=== PATIENT | female | born 1945 | race Caucasian/White ===

== ENCOUNTER 2016-08-12 14:32 | Inpatient (IN) | payer OTHER ==
[~2016-08-12] VITALS: Ht 175.3 cm; Wt 62.9 kg
[~2016-08-12 14:32] MED LIST: CARAFATE1 GM PO; LORTAB 5-325 M1 EACH PO; NEURONTIN100 MG PO; PRILOSEC40 MG PO; Protonix PO; ROPINIROLE HCL1 MG PO; ZANTAC150 MG PO; ZOFRAN ODT8 MG PO; ZOFRAN4 MG PO
[2016-08-12 15:17] LABS: HEMATOCRIT 46.7 % (36.0-46.0); MCH 31.6 PG (29.0-34.0); MCHC 34.3 G/DL (30.0-36.0); MCV 92.1 FL (83-99); PLATELET COUNT 181 K/uL (156-360); RBC DIS.WIDTH-CV 12.9 % (11.8-14.6); RBC DIS.WIDTH-SD 43.5 % (39-53); RED BLOOD COUNT 5.07 M/uL (3.80-5.20); WHITE BLOOD COUNT 17.9 K/uL (4.1-10.2)
[2016-08-12 15:19] LABS: BILIRUBIN NEGATIVE; BLOOD NEGATIVE; COLOR YELLOW ((YELLOW)); GLUCOSE (STRIP) NEGATIVE; KETONES 80; LEUKOCYTES NEGATIVE; NITRITE NEGATIVE; PROTEIN (STRIP) 30; SPECIFIC GRAVITY 1.018 (1.000-1.030); UROBILINOGEN 0.2 MG/DL (0.2-1.0)
[2016-08-12 15:21] LABS: ADD MIUA? NO; UCUL ADDED? NO
[2016-08-12 15:30] LABS: CHLORIDE 88 mEq/L (99-109); SODIUM 134 mEq/L (136-147)
[2016-08-12 15:32] LABS: GLUCOSE 134 mg/dL (70-99)
[2016-08-12 15:33] LABS: ANION GAP 18 MEQ/L (2-14)
[2016-08-12 15:34] LABS: TOTAL BILIRUBIN 0.6 mg/dL (0.0-1.0)
[2016-08-12 15:35] LABS: ALKALINE PHOSPHATASE 77 IU/L (3-129)
[2016-08-12 15:36] LABS: GFR ESTIMATE (CALCULATED) 47 mL/min/
[2016-08-12 15:37] LABS: UREA NITROGEN (BUN) 47 mg/dL (9-23)
[2016-08-12] MEDS ORDERED: AMLODIPINE BESYL5 MG PO (17:15)
[2016-08-12] MEDS ORDERED: VITAMIN D31000 UNIT PO (17:15)
[2016-08-12] MEDS ORDERED: LO-DOSE ASPIRIN81 M2 PO (17:16)
[2016-08-12] MEDS ORDERED: METOPROLOL TART50 MG PO (17:16)
[2016-08-12 23:09] VITALS: BP 130/68
[2016-08-13] VITALS (8 sets, daily range): BP systolic 106–179; BP diastolic 56–90
[2016-08-13 07:34] LABS: HEMATOCRIT 39.3 % (36.0-46.0); MCV 94.7 FL (83-99)
[2016-08-13 08:26] LABS: MCH 32.1 PG (29.0-34.0); MCHC 33.9 G/DL (30.0-36.0); MEAN PLAT.VOLUME 10.4 uM^3 (9.5-12.4); PLATELET COUNT 148 K/uL (156-360); RBC DIS.WIDTH-CV 13.2 % (11.8-14.6); RBC DIS.WIDTH-SD 45.7 % (39-53); RED BLOOD COUNT 4.14 M/uL (3.80-5.20); WHITE BLOOD COUNT 14.8 K/uL (4.1-10.2)
[2016-08-13 08:38] LABS: ANION GAP 10 MEQ/L (2-14); CHLORIDE 99 MEQ/L (99-109); GLUCOSE 106 mg/dL (70-99); MAGNESIUM 2.1 mg/dl (1.3-2.7); POTASSIUM 3.1 MEQ/L (3.7-5.4); SAMPLE HEMOLYSIS CHECK 0; SAMPLE ICTERIC CHECK 0; SAMPLE LIPEMIA CHECK 0; SODIUM 138 MEQ/L (136-147)
[2016-08-13 08:41] LABS: GFR ESTIMATE (CALCULATED) > 59 mL/min/; UREA NITROGEN (BUN) 21 mg/dL (9-23)
[2016-08-13 17:46] LABS: AMPHETAMINES QUANT VALUE 0 NG/ML; BARBITUATES QUANT VALUE 0 NG/ML; BENZODIAZEPINES QUANT VALUE 0 NG/ML; BENZODIAZEPINES, URINE SCREEN Negative (200 ng/mL); PHENCYCLIDINE QUANT VALUE 0 NG/ML
[2016-08-13 19:49] LABS: HEMATOCRIT 37.9 % (36.0-46.0); MCV 96.2 FL (83-99)
[2016-08-14 03:54] VITALS: BP 105/66
[2016-08-14 08:16] LABS: HEMATOCRIT 34.6 % (36.0-46.0); MCV 95.1 FL (83-99)
[2016-08-14 08:34] VITALS: BP 135/65
[2016-08-14 08:50] LABS: MCHC 34.6 G/DL (30.0-36.0); MEAN PLAT.VOLUME 10.7 uM^3 (9.5-12.4); PLATELET COUNT 126 K/uL (156-360); RBC DIS.WIDTH-CV 12.9 % (11.8-14.6); RBC DIS.WIDTH-SD 44.7 % (39-53); RED BLOOD COUNT 3.61 M/uL (3.80-5.20); WHITE BLOOD COUNT 7.2 K/uL (4.1-10.2)
[2016-08-14 09:29] LABS: ANION GAP 11 MEQ/L (2-14); CHLORIDE 100 MEQ/L (99-109); GFR ESTIMATE (CALCULATED) > 59 mL/min/; POTASSIUM 2.8 MEQ/L (3.7-5.4); SAMPLE HEMOLYSIS CHECK 0; SAMPLE ICTERIC CHECK 0; SAMPLE LIPEMIA CHECK 0; SODIUM 135 MEQ/L (136-147); UREA NITROGEN (BUN) 16 mg/dL (9-23)
[2016-08-14 09:35] LABS: GLUCOSE 71 mg/dL (70-99)
[2016-08-14 12:05] LABS: MAGNESIUM 1.7 mg/dl (1.3-2.7)
[2016-08-14 12:28] VITALS: BP 151/68
[2016-08-14] MEDS ORDERED: FOLIC ACID1 MG PO (15:11)
[2016-08-14] MEDS ORDERED: THERAGRAN1 TABLET PO (15:11)
[2016-08-14] MEDS ORDERED: Thiamine,Vitamin B1 PO (15:12)
[2016-08-14 15:46] VITALS: BP 151/71
[2016-08-14 18:30] LABS: ANION GAP 7 MEQ/L (2-14); CHLORIDE 100 MEQ/L (99-109); GFR ESTIMATE (CALCULATED) > 59 mL/min/; SAMPLE HEMOLYSIS CHECK 0; SAMPLE ICTERIC CHECK 0; SAMPLE LIPEMIA CHECK 0; SODIUM 134 MEQ/L (136-147); UREA NITROGEN (BUN) 11 mg/dL (9-23)
[2016-08-14 18:35] LABS: GLUCOSE 130 mg/dL (70-99); POTASSIUM 3.7 MEQ/L (3.7-5.4)
[2016-08-14 21:16] LABS: MCV 93.2 FL (83-99)
[2016-08-14 23:55] VITALS: BP 124/60
[2016-08-15 03:51] VITALS: BP 177/84
[2016-08-15 08:00] VITALS: BP 115/58
[2016-08-15 08:52] LABS: HEMATOCRIT 37.7 % (36.0-46.0); MCH 31.8 PG (29.0-34.0); MCHC 34.2 G/DL (30.0-36.0); MCV 92.9 FL (83-99); MEAN PLAT.VOLUME 10.4 uM^3 (9.5-12.4); PLATELET COUNT 154 K/uL (156-360); RBC DIS.WIDTH-CV 12.3 % (11.8-14.6); RED BLOOD COUNT 4.06 M/uL (3.80-5.20); WHITE BLOOD COUNT 8.1 K/uL (4.1-10.2)
[2016-08-15 09:15] LABS: ANION GAP 8 MEQ/L (2-14); CHLORIDE 100 MEQ/L (99-109); GFR ESTIMATE (CALCULATED) > 59 mL/min/; GLUCOSE 125 mg/dL (70-99); POTASSIUM 3.4 MEQ/L (3.7-5.4); SAMPLE HEMOLYSIS CHECK 0; SAMPLE ICTERIC CHECK 0; SAMPLE LIPEMIA CHECK 0; SODIUM 135 MEQ/L (136-147); UREA NITROGEN (BUN) 8 mg/dL (9-23)
[2016-08-15] MEDS ORDERED: PANTOPRAZOLE SO40 MG PO (10:08)
[2016-08-15] MEDS ORDERED: Thiamine,Vitamin B1 PO (10:08)
[2016-08-15] MEDS ORDERED: ONDANSETRON ODT4 MG PO (10:09)
== END 2016-08-15 12:30 | disposition home or self-care (01) | DRG 378 ==
LOC: EME 14:32 → 3EAST 19:52 → EDOF 19:52 → 3EAST 22:26
PROVIDERS: Hospitalist; Physician Assistant
DX: K29.21 Alcoholic gastritis with bleeding (principal); I10 Essential (primary) hypertension; F17.210 Nicotine dependence, cigarettes, uncomplicated; F12.10 Cannabis abuse, uncomplicated; G25.81 Restless legs syndrome; F10.239 Alcohol dependence with withdrawal, unspecified; D72.829 Elevated white blood cell count, unspecified; E87.6 Hypokalemia; Z79.82 Long term (current) use of aspirin
CPT/HCPCS: 71010; 74176; 80048; 80048 91; 80053; 80306 90; 81003; 83605; 83735; 84132 91; 85014; 85018; 85027; 86900; 86901; 87040; 87076; 87801; 93005; 99281; 99285; C9113; J0360; J0696; J2060; J2270; J2405; J3411; J3475; J3480; J7030; J7050